=== PATIENT | female | born 1950 ===

== ENCOUNTER → 2022-10-14 | Outpatient (CLI) | payer MEDICARE ==
[~2022-10-14] VITALS: Ht 165.1 cm; Wt 67.0 kg
[2022-10-14 13:02] VITALS: BP 108/72
== END | disposition home or self-care (01) ==
LOC: SRCNTR 10:35
PROVIDERS: ATTEND Internal Medicine Pulmonary Disease
DX: R05.9 Cough, unspecified (principal); K21.9 Gastro-esophageal reflux disease without esophagitis
CPT/HCPCS: G0463

== ENCOUNTER → 2023-10-08 | Outpatient (CLI) | payer MEDICARE, OTHER ==
[~2023-10-08] VITALS: Ht 165.1 cm; Wt 63.0 kg
[~2023-10-08] MED LIST: AMLO2.5T96 PO; LORA10TA7 PO; PANT-31 PO
[2023-10-08 11:38] VITALS: BP 109/76; PULSE 73; RESP 17; TEMP 98.9; O2SAT 97
== END | disposition home or self-care (01) ==
LOC: SRCNTR 11:05
PROVIDERS: ATTEND Internal Medicine Pulmonary Disease
DX: K21.9 Gastro-esophageal reflux disease without esophagitis (principal); R05.9 Cough, unspecified; J45.909 Unspecified asthma, uncomplicated
CPT/HCPCS: G0463; Z7500